=== PATIENT | male | born 1950 | race Caucasian/White ===

== ENCOUNTER 2024-11-27 10:47 | Day surgery (SDC) | payer MEDICARE, OTHER ==
--- NOTE | 2024-11-20 16:08 | ELECTROCARDIOGRAPH REPORT ---
[facility] Test Date: 2024-11-20 Test Time: 16:06:10 Pat Name: DIANN VELAZQUEZ Department: [facility]-PRE-OP Patient ID: [id number] Room: Gender: M [employer] Assistant: KEIRA : 1950 Requested By: DAVID DE LA ROSA Order Number: [id number] Reading MD: Dr. MAGUI Main Measurements Intervals [place] Rate: 58 P: 41 LA: 171 QRS: -2 QRSD: 105 T: 77 QT: 426 QTc: 419 Interpretive Statements Sinus bradycardia RSR' in V1 or V2, right VCD or RVH Electronically Signed On 11-20-2024 17:38:[address] MAGUI Main Please click the below link to view image of tracing.
[2024-11-20 16:20] LABS: BASOPHILS # (AUTO) 0.1 X10'3 (0-0.2); BASOPHILS % (AUTO) 0.9 % (0-1); EOSINOPHILS % (AUTO) 0.7 % (0-6); HEMATOCRIT 40.7 % (42.0-52.0); HEMOGLOBIN 13.8 g/dl (14.0-17.9); LYMPHOCYTES # (AUTO) 1.2 X10'3 (1.1-4.8); LYMPHOCYTES % (AUTO) 21.3 % (21-51); MEAN CORPUSCULAR HEMOGLOBIN 29.7 PG (27.0-31.0); MEAN CORPUSCULAR HGB CONC 33.9 g/dL (33.0-36.5); MEAN CORPUSCULAR VOLUME 87.6 FL (78-98); MEAN PLATELET VOLUME 7.2 FL (7.4-10.4); MONOCYTES # (AUTO) 0.6 X10'3 (0-0.9); MONOCYTES % (AUTO) 10.2 % (2-12); NEUTROPHILS # (AUTO) 3.8 X10'3 (1.8-7.7); NEUTROPHILS % (AUTO) 66.9 % (42-75); PLATELET COUNT 265 X10'3 (140-440); RED BLOOD COUNT 4.65 X10'6 (4.70-6.10); RED CELL DISTRIBUTION WIDTH 13.6 % (11.5-14.5); WHITE BLOOD COUNT 5.6 X10'3 (4.5-11.0)
[2024-11-20 16:38] LABS: ALANINE AMINOTRANSFERASE 17 U/L (12-78); ALBUMIN 3.6 G/DL (3.4-5.0); ALBUMIN/GLOBULIN RATIO 1.2 (1.1-1.5); ALKALINE PHOSPHATASE 71 IU/L (46-116); ANION GAP 9 (8-16); ASPARTATE AMINO TRANSFERASE 17 U/L (10-37); BILIRUBIN,TOTAL 0.6 MG/DL (0.1-1.0); BLOOD UREA NITROGEN 22 MG/DL (7-18); BUN/CREATININE RATIO 22.7 (10.0-20.0); CALCIUM 8.6 MG/DL (8.5-10.1); CHLORIDE 106 MMOL/L (99-107); CREATININE 0.97 MG/DL (0.60-1.10); GLUCOSE 86 MG/DL (70-104); POTASSIUM 3.8 MMOL/L (3.5-5.1); SODIUM 143 MMOL/L (135-145); TOTAL PROTEIN 6.5 G/DL (6.4-8.2); eGFR 75 ML/MIN
[~2024-11-27] VITALS: Ht 175.3 cm; Wt 74.0 kg
[2024-11-27] VITALS (9 sets, daily range): BP systolic 123–138; BP diastolic 69–88; PULSE 55–64; RESP 11–18; TEMP 97.9; O2SAT 98–100
[2024-11-27] MEDS: ceFAZolin 2gm/dext,iso 50mL 50 ML IV ONE (05:30)
[~2024-11-27 10:47] MED LIST: NO HOME MEDS
[2024-11-27] MEDS: famotidine 20mg tablet PO ONE (11:32)
[2024-11-27] MEDS: ringers solution, lacted 1,000 ML IV SCH (11:33)
[2024-11-27] MEDS ORDERED: iohexol 300 MG/1 ML 50ml polymer ONE (12:13)
[2024-11-27] MEDS ORDERED: sevoflurane 250ml liquid IH ONE (12:26)
[2024-11-27] MEDS ORDERED: fentaNYL/PF 50MCG/1 ML 2ML syringe ONE (13:36)
[2024-11-27] MEDS ORDERED: midazolam 1 mg/ML 2ml injection ONE (13:36)
[2024-11-27] MEDS ORDERED: propofol inj 20 ML IV ONE (13:41)
[2024-11-27] MEDS ORDERED: LIDOcaine 2% (20mg/ml) 5ml vial ONE (13:41)
[2024-11-27] MEDS ORDERED: labetalol 20mg/4ml (5mg/ml) syringe IV PRN (13:50)
[2024-11-27] MEDS ORDERED: acetaminophen 1,000mg/100ml IV 100 ML IV PRN (13:50)
[2024-11-27] MEDS ORDERED: hydrALAZINE 20mg/ml inj. IV PRN (13:50)
[2024-11-27] MEDS ORDERED: morphine 4 MG/ML inj SYRINge IV PRN (13:50)
[2024-11-27] MEDS ORDERED: meperidine/PF 25mg/ml syringe IV PRN (13:50)
[2024-11-27] MEDS ORDERED: HYDROmorphone/PF 0.2 MG/ML SYRINGE IV PRN ×2 (13:50)
[2024-11-27] MEDS ORDERED: ondansetron/PF 4mg/2ml inj IV PRN (13:50)
[2024-11-27] MEDS ORDERED: proCHLORperazine 10 MG/2 ml inj IV PRN (13:50)
[2024-11-27] MEDS ORDERED: ringers solution, lacted 1,000 ML IV SCH (13:50)
[2024-11-27] MEDS ORDERED: morphine 2 MG/ML inj. syringe IV PRN (13:50)
[2024-11-27] MEDS ORDERED: ondansetron/PF 4mg/2ml inj ONE (14:34)
[2024-11-27] MEDS ORDERED: dexamethasone sod phosphate 4mg/ml inj. ONE (14:34)
--- NOTE | 2024-11-27 14:41 | OPERATIVE REPORT ---
Operative Report Providers to ~ Date of Procedure: November 27, 2024 Pre-Operative Diagnosis: Left renal stone Post-Operative Diagnosis Left renal stone, bladder stone. Procedure Performed Cystourethroscopy. Cystolitholapaxy. Left retrograde pyelography. Left ureteroscopic laser lithotripsy and continuous VAC clearance of debris. Fluoroscopy with interpretation less than 1 hour. Surgeon: Gokul De La Rosa MD [employer] None. Anesthesiologist: Yogesh Carrillo Type of Anesthesia: General Findings: Fluoroscopic findings left retrograde pyelography demonstrated a small radio- opaque stone in a lower pole calyx. Final images demonstrate coiling of the ureteral stent within the renal pelvis and bladder. Complications None. Estimated Blood Loss: None. Specimen Removed: Kidney stone fragments, bladder stone fragments. Description of Procedure: The patient was under the effects of general anesthesia and in dorsal lithotomy with his genitals prepped and draped in sterile fashion. We entered the urethra with a 21 Tamazight scope and appreciated mild lateral lobe enlargement and a normal bladder with orthotopic ureteral orifices. There was a medium size stone dependently within the bladder. The stone was a bit too large to fit through our cystoscope sheath so the stone was partially crushed with a grasper and then evacuated through our cystoscope sheath. We then performed left retrograde pyelography revealing the above-mentioned findings. We advanced a wire into the upper tract and over this wire we advanced an access sheath to the proximal ureter. We then advanced a continuous flow scope through this access sheath and we identified two additional stones in the lower pole of the kidney. The stones were fragmented using high-frequency laser energy and fragments were then evacuated through our ureteral scope. We offloaded our scope and removed our access sheath leaving behind a wire within the ureter. This wire was backloaded onto the cystoscope and used to advance and deploy a ureteral stent. We then removed all instruments from the patient's body marking Counts repoted as correct: Yes GOKUL DE LA ROSA MD November 27, 2024 14:41
[2024-11-27] MEDS: iohexol 300 MG/1 ML 50ml polymer IV ONE (14:56)
== END 2024-11-27 16:17 | disposition home or self-care (01) ==
LOC: PRE-OP 10:47 → PAS 16:17
PROVIDERS: ATTEND Urology
DX: N20.0 Calculus of kidney (principal); N21.0 Calculus in bladder; C61 Malignant neoplasm of prostate; Z79.899 Other long term (current) drug therapy; Z87.891 Personal history of nicotine dependence; Z88.6 Allergy status to analgesic agent; Z98.890 Other specified postprocedural states
CPT/HCPCS: 36415; 52318; 52332; 74420; 80053; 82948; 85025; 88300; 93005; A4355; A4618; A7000; C1758; C1769; C1894; C2617; C9761; J0690; J1100; J2003; J2175; J2250; J2405; J2704; J3010; J7030; J7120; Q9967; Z7506; Z7508; Z7512; Z7610; 76000; C1747